=== PATIENT | male | born 1965 | race Caucasian/White ===

== ENCOUNTER 2017-08-08 15:56 | Emergency (ER) | payer SELFPAY ==
[2017-08-08] MEDS ORDERED: KETOROLAC 30 MG/ML VIAL IM ONE (16:32)
--- NOTE | 2017-08-08 16:35 | Emergency Department Record ---
History of Present Illness - General Chief complaint: Extremity Problem Time Seen by Provider: 08/08/17 16:29 Source: Patient Mode of Arrival: crutch Limitations: No limitations - History of Present Illness Initial comments: The patient is here due to R foot pain. He was walking and kicked a stump about 2 hours ago and injured his R big toe. Since he has had significant pain to the R big toe. The patient denies any ankle or knee pain. MD Complaint: Extremity pain Onset/Timin -: Hour(s) Location: Right, Foot - Related Data Previous Rx's Medication Instructions Recorded Hydrocodone/Acetaminophen [[place] 1 each PO .EVERY 4-6 HRS PRN #15 08/08/17 5-325 Tablet] tablet Allergies Allergy/AdvReac Type Severity Reaction Status Date / Time No Known Drug Allergies Allergy Verified 08/08/17 16:33 Travel Screening - Travel/Exposure Within Last 30 Days Have you traveled within the last 30 days?: No - Travel/Exposure Within Last Year Have you traveled outside the [place] in the last year?: No - Additonal Travel Details Have you been exposed to anyone with a communicable illness?: No - Travel Symptoms Symptom Screening: None Review of Systems Constitutional: Denies: Chills, Fever Past Medical History - SOCIAL HISTORY Smoking Status: Never smoker Alcohol Use: None Drug Use: None - RESPIRATORY Hx Respiratory Disorders: Yes Hx Bronchitis: Yes - CARDIOVASCULAR Hx Cardio Disorders: No - NEURO Hx Neuro Disorders: No - GI Hx GI Disorders: No - Hx Genitourinary Disorders: No - ENDOCRINE Hx Endocrine Disorders: No Hx Diabetes: Yes (non insulin dependent) - MUSCULOSKELETAL Hx Musculoskeletal Disorders: No Hx Arthritis: Yes - PSYCH Hx Psych Problems: Yes Hx Depression: Yes - HEMATOLOGY/ONCOLOGY Hx Hematology/Oncology Disorders: No Family Medical History Any Significant Family History?: No Physical Exam - General General Appearance: Alert, Oriented x3, Cooperative, No acute distress - Head Head exam: Atraumatic, Normocephalic, Normal inspection - Eye Eye exam: Normal appearance, PERRL - Extremities Extremities exam: Normal inspection, Tenderness (There is significant tenderness to the R 1st toe at the MCP joint. ). negative: Full ROM Image of Feet: 1 - area of pain and tenderness. 2 - area of pain and tenderness. Course Vital Signs 08/08/17 16:26 Temperature 98.0 F Pulse Rate 93 H Respiratory 18 Rate Blood Pressure 138/92 Pulse Ox 97 - Reevaluation(s) Reevaluation #1: Procedure note: The R 1st toe subluxation was reduced by pulling with good reduction of the DIP joint. There were no complications. 08/08/17 17:49 Reevaluation #2: The patient is doing much better at this time. He is able to flex the R 1st toe with mild pain but the foot is MUCH improved since the reduction took place. We will place him with a walking boot and have him F/U with his PCP later this week or early next week. 08/08/17 18:17 Medical Decision Making - Data Complexity MDM Data: X-Ray Ordered and/or Reviewed - Radiology Data Radiology results: Report reviewed (R foot: Possible subluxation of the R 1st toe DIP joint. Neg for fx. Post reduction xrays: Normal alignment.) Disposition Disposition: Discharge Clinical Impression: Subluxation of right toe Qualifiers: Encounter type: initial encounter Qualified Code(s): S93.101A - Unspecified subluxation of right toe(s), initial encounter Disposition: Home, Self-Care Condition: (2) Stable Instructions: Foot Sprain (ED) Additional Instructions: Please ice and elevate the R foot when possible and use the walking boot with your home crutches. Take Motrin or [place] for pain. Please see your PCP for recheck later this week or early next week. Return to the ER for any worsening symptoms. Prescriptions: Hydrocodone/Acetaminophen [[place] 5-325 Tablet] 1 each PO .EVERY 4-6 HRS PRN #15 tablet PRN Reason: Pain Forms: Patient Portal Access Time of Disposition: 18:20 Quality - Quality Measures Quality Measures: N/A - Blood Pressure Screening View Details: Yes Does Patient Have Any of the Following: No Blood Pressure Classification: Hypertensive Reading Systolic Measurement: 138 Diastolic Measurement: 92 Screening for High Blood Pressure: < First Hypertensive BP, F/U Documented > [ [id number]] First Hypertensive Follow-up Interventions: Referral to alternative/primary care provider.
[2017-08-08] MEDS ORDERED: HYDROCODONE/APAP 5/325MG TABLET PO ONE (17:47)
--- NOTE | 2017-08-10 08:10 | RADIOLOGY REPORT ---
EXAM: RIGHT FOOT HISTORY: FOOT HIT TREE STUMP WITH PAIN ACROSS THE RIGHT FOOT. TECHNIQUE: Three views of the right foot were obtained. Comparison: None. Encounter: Initial. FINDINGS: Postop changes seen involving the distal fibula with an internal plate and screw fixation device in place. Some chronic appearing calcification adjacent to the tip of the medial malleolus as well. There appears to be an abnormal relationship with the IP joint of the great toe with slight lateral subluxation of the distal phalanx on the proximal phalanx on at least one view and with some relative lateral angulation of the distal phalanx relative to the proximal phalanx. No associated fracture or debra dislocation is identified although the IP joint of the great toe is poorly seen on the lateral view due to all of the overlapping toes. Correlation with range of motion at the IP joint of the great toe is suggested. No definite acute fracture of the right foot identified. IMPRESSION: 1. POSTOP CHANGE AT THE ANKLE. 2. THERE APPEARS TO BE AN ABNORMAL RELATIONSHIP WITH THE IP JOINT OF THE GREAT TOE LIKELY REPRESENTING SOME MILD SUBLUXATION WITH NO DEFINITE ASSOCIATED FRACTURE IDENTIFIED. CORRELATION WITH RANGE OF MOTION OF THE IP JOINT OF THE GREAT TOE IS SUGGESTED. JOB NUMBER: [id number] [facility]
--- NOTE | 2017-08-10 08:33 | RADIOLOGY REPORT ---
EXAM: RIGHT FOOT HISTORY: POST REDUCTION EVALUATION RIGHT FOOT. TECHNIQUE: AP and lateral views of the right foot were obtained. Comparison: Right foot series 08/08/17 from 4:46 p.m. earlier this afternoon. FINDINGS: There is now improved alignment at the IP joint of the great toe with the previously seen subluxation appearing to have been reduced and with less relative lateral angulation of the distal phalanx relative to the proximal phalanx. There is probably some soft tissue swelling involving the great toe. No definite fracture of the great toe or elsewhere in the right foot identified. Postop changes distal fibula again noted. IMPRESSION: REDUCTION OF THE PREVIOUSLY SEEN SUBLUXATION AT THE IP JOINT OF THE GREAT TOE COMPARED WITH EARLIER THIS AFTERNOON. J[facility] NUMBER: [id number] [facility]
== END 2017-08-08 18:24 | disposition home or self-care (01) ==
LOC: ER 15:56
DX: S93.131A Subluxation of interphalangeal joint of right great toe, initial encounter (principal); X58.XXXA Exposure to other specified factors, initial encounter
CPT/HCPCS: 28660 ×2; 99283; 96372; 99284; 73630; 73620; J1885